=== PATIENT | male | born 1965 | race Caucasian/White ===

== ENCOUNTER → 2023-04-06 | Outpatient (CLI) | payer BC, SELFPAY ==
[2023-04-06 12:26] LABS: Absolute Lymphocyte Count 2.45 X10^3/uL (0.83-4.51); Absolute Neutrophil Count 2.8 X10^3/uL (2.0-7.7); Basophil# 0.04 X10^3/uL; Basophil% 0.7 % (0-1); Eosinophil# 0.09 X10^3/uL; Eosinophils% 1.5 % (0-5); Hematocrit 41.1 % (40-54); Hemoglobin 14.1 g/dL (13.0-16.5); Lymphocyte # 2.45 X10^3/ul (0.83-4.51); Lymphocyte % 41.8 % (19-41); Mean Corp Hgb Conc 34.3 g/dL (32-36); Mean Corpuscular Hgb 30.9 pg (27.0-32.0); Mean Corpuscular Volume 90.1 fL (80-94); Monocyte# 0.47 X10^3/uL; NRBC Flagged by Analyzer 0 % (0-5); Neutrophil # 2.78 X10^3/uL (2.7-7.7); Neutrophil % 47.5 % (47-70); Platelet Count 290 K/mm3 (150-450); RBC Distribution Width SD 39.6 fl (35.1-43.9); Red Blood Count 4.56 M/mm3 (4.6-6.2); White Blood Count 5.9 K/mm3 (4.4-11.0)
[2023-04-06 13:11] LABS: ALB/GLOB Ratio 1.1 RATIO (0.9-2.4); AST(SGOT) 27 U/L (15-37); Alanine Aminotransfer ALT/SGPT 45 U/L (16-61); Albumin, Serum 4.2 g/dL (3.2-5.0); Alkaline Phosphatase 45 U/L (45-117); Anion Gap 9 (5-15); BUN 13 mg/dL (7-18); BUN/Creat Ratio 15.5 RATIO (10-20); Calcium,Total 9.9 mg/dL (8.5-10.1); Chloride 105 mmol/L (98-107); Cholesterol 194 mg/dL (200); Creatinine, Serum 0.84 mg/dL (0.70-1.30); EST Glomerular Filtration Rate 100 mL/min (>60); Est Glom Filt Rate - Afr Amer 121 mL/min (>60); Globulin 3.8 g/dL (2.2-4.2); Glucose 94 mg/dL (74-106); High Density Lipoprotein 53 mg/dL; Potassium 4.3 mmol/L (3.5-5.1); Sodium Level 138 mmol/L (136-145); Triglycerides 213 mg/dL; Very Low Density Lipoprotein 43 mg/dL (5-40)
== END | disposition home or self-care (01) ==
LOC: MFPLAB 10:15
PROVIDERS: PCP Family Medicine; Visit Provider Family Medicine
DX: E78.5 Hyperlipidemia, unspecified (principal); I10 Essential (primary) hypertension
CPT/HCPCS: 36415; 80053; 80061; 85025

== ENCOUNTER 2024-07-25 07:41 | Day surgery (SDC) | payer BC, SELFPAY ==
--- NOTE | 2024-07-23 14:17 | PAT.ANE_ITS ---
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 When Was Last Pacemaker Check QUESTION #4 FULL TEXT: You/Your Family Experience fever (hyperthermia) with Anesthesia Last Oral Intake Last Oral intake: Last Oral Intake NPO since Meds taken in AM with sips of water? 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 Has anyone observed you stop No 07/23/24 12:08 breathing during sleep? STOP Results Negative 07/23/24 12:08 QUESTION #5 FULL TEXT : Do you snore loudly (louder than talking or can be heard through closed doors)? 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 Specify any problems Hx of Preganancy in last 3 N/A 07/23/24 12:08 Months Nurse Filling Out Transfusion VCHRISTIN 07/23/24 12:08 & Questions: Date: 07/23/24 07/23/24 12:08 Time: 12:10 07/23/24 12:08 Patient unable to answer at this time (ie. 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 Hx Now Gestational Age (in weeks): EDC: Hx Hx Para Hx Section SAB PFSH Medical History (Updated 07/23/24 @ 12:08 by Mar Garcia) Wears glasses Alcohol use Excessive bleeding Non-smoker History of stress test Hyperlipidemia Anxiety HTN (hypertension) Family history of colon cancer Personal history of colonic polyps Home Medications ?Medication ?Instructions ?Recorded ?Last Taken ?Type escitalopram oxalate 20 mg tablet 20 mg PO QDAY Unknown History lisinopril 20 mg tablet 20 mg PO QDAY 05/14/24 Unkno wn History multivitamin 1 tab PO QDAY 05/14/24 Unkno wn History simvastatin 20 mg tablet 20 mg PO QDAY 05/14/24 Unkno wn History Allergy/AdvReac Type Severity Reaction Status Date / Time Sulfa (Sulfonamide Allergy PT UNSURE Verified 07/23/24 11:59 Antibiotics) (sulfa drugs) OF REACTION Family History (Updated 05/14/24 @ 09:25 by Jory Madrigal) Grandmother Colon cancer Maternal, In her 70's Surgical History (Updated 07/23/24 @ 12:08 by Mar Garcia) History of laparoscopic cholecystectomy Hx of colonoscopy Social History (Updated 05/14/24 @ 09:26 by Jory Madrigal) household members: spouse current occupational status: employed Smoking Status: Never smoker alcohol intake: current alcohol intake frequency: holidays/special occasions only substance use type: does not use Audit: Pertinent Findings Pertinent Findings EKG Perinent findings: 02/2021: NSR, normal EKG Stress test pertinent findings: 07/2021: Negative treadmill stress test, no evidence of exercise induced ischemia Recommendation Anesthesia Recommendation Anesthesia recommendation: OPTIMIZED for anesthesia
[2024-07-25] VITALS (8 sets, daily range): BP systolic 110–125; BP diastolic 69–82; PULSE 58–66; RESP 12–16; TEMP 36.6–37.5; O2SAT 97–100; BMI 26.8
[2024-07-25] MEDS: Lactated Ringers 1,000 ML 15 ML IV (08:14)
--- NOTE | 2024-07-25 08:22 | H&P.OPEN ---
HPI - General HPI Narrative [place]AW, is a 59 M who presents for surveillance colonoscopy. The patient had a colonoscopy 5 years ago and polyps were removed and he was recommended for 5-year recall. He denies abdominal pain or blood in the stool. No constipation issues. No family history besides a grandmother with colon cancer [facility] Medical History (Updated 07/25/24 @ 08:[address] Jayme Escobar MD) Wears glasses Alcohol use Excessive bleeding Non-smoker History of stress test Hyperlipidemia Anxiety HTN (hypertension) Family history of colon cancer Personal history of colonic polyps Home Medications ?Medication ?Instructions ?Recorded ?Last Taken ?Type escitalopram oxalate 20 mg tablet 20 mg PO QDAY 05/14/24 07/24/24 History lisinopril 20 mg tablet 20 mg PO QDAY 05/14/24 07/24/24 History multivitamin 1 tab PO QDAY 05/14/24 07/24/24 History simvastatin 20 mg tablet 20 mg PO QDAY 05/14/24 07/24/24 History Allergy/AdvReac Type Severity Reaction Status Date / Time Sulfa (Sulfonamide Allergy PT UNSURE Verified 07/25/24 08:08 Antibiotics) (sulfa drugs) OF REACTION Family History (Updated 05/14/24 @ 09:25 by Jory Madrigal) Grandmother Colon cancer Maternal, In her 70's Surgical History (Updated 07/23/24 @ 12:08 by Mar Garcia) History of laparoscopic cholecystectomy Hx of colonoscopy Social History (Updated 05/14/24 @ 09:26 by Jory Madrigal) household members: spouse current occupational status: employed Smoking Status: Never smoker alcohol intake: current alcohol intake frequency: holidays/special occasions only substance use type: does not use Past Medical/Surgical History Planned Operation Planned Operative Procedure(s): COLONOSCOPY-OA Previous Hospitalizations/Surgeries HX Hospitalizations: No Any Problems With Anesthesia: Yes (HARD TO WAKE, N&V) You/Your Family Experience Fever (Hyperthermia) With Anes: No Cholinesterase deficiency: No Cardiovascular Hx Hypertension: No Respiratory Hx Sleep Apnea: No Hx Respiratory Tract Infection/Cold (presently): No Do You Snore Loudly (louder than talking or can be heard): No Do You Often Feel Tired/ Fatigued/ Sleepy Dring Daytime?: No Has Anyone Observed You Stop Breathing During Sleep?: No Result (for STOP score): Negative Smoking Status: Never smoker Neurological Does patient have nerve stimulator: No Miscellaneous Recent Exposure to Contagious Disease: No Allergies Sulfa (Sulfonamide Antibiotics) (sulfa drugs) Allergy (Verified 07/25/24 08:08) PT UNSURE OF REACTION As a child Discharge Is Pt Admitted From a [facility], or a Retirement: No After D/C, Where Do you Plan to Go: Return Home Vital Signs Vital Signs Vital Signs: 07/25/24 08:11 07/25/24 08:12 Temperature 97.9 F Temperature Source Temporal Pulse Rate 63 Respiratory Rate 12 Respiratory Pattern Normal Blood Pressure 125/82 H Blood Pressure Mean 96 Blood Pressure Source Monitor Blood Pressure Position Semi-Fowlers Blood Pressure Location Left Arm Pulse Ox 100 Oxygen Delivery Method Room Air Weight Weight: 186 lb 15.232 oz Body Mass Index (BMI) 26.8 Physical Exam Const alert and oriented x3 HEENT normocephalic Eyes PERRL Resp normal respiratory effort and normal air movement Cardio regular rate and regular rhythm GI soft to palpation, non-tender and non-distended Extremity normal to inspection Assessment & Plan Assessment/Plan (1) Personal history of colonic polyps: PLAN: I explained endoscopy in detail to the patient. I explained the risks including but not limited to stroke or heart attack with anesthesia, perforation of the GI tract, bleeding, infection. I explained that any of these could necessitate further emergency surgery. The patient understands and all questions were answered sufficiently. The patient wishes to proceed with procedure. Jayme Escobar MD Pager: [facility] [address] [place] [address], [address] [place] [address] Office: Surgery Risks - Colonoscopy Risks Include but are not Limited To: Risks include but are not limited to: Bleeding, perforation requiring further surgery, inability to complete colonoscopy requiring barium enema.
--- NOTE | 2024-07-25 08:28 | PRE.ANES_ITS ---
ASA Classification* ASA Classification ASA Classification: 2 Assessment & Plan Anesthesia* Anesthesia Assessment Anesthesia Assessment: Discussed sedation and/or anesthesia options, risks, benefits, and alternatives with patient/parents/legal guardian/POA. Questions invited. The patient/parents/legal guardian/POA seems to understand and agrees to proceed with anesthesia plan. Reviewed the physical assessment, medical history, allergy history and patient home medications list prior to surgery/procedure/anesthetic and documented any changes. Performed airway and anesthesia risk assessments. Anesthesia Type Anesthesia Type: MAC History Source History Obtained from:: Patient and Chart Anesthesia Focused Assessment* Temperature: 97.9 F Pulse Rate: 63 Blood Pressure: 125/82 Respiratory Rate: 12 Pulse Ox: 100 Oxygen Delivery Method: Room Air Airway Assessment Mouth opens: >3 cm Mallampati Score: II Teeth Condition: Intact Neck Range of motion (ROM): Full ROM Focused Labs Anesthesia Preop lab: CBC WBC 5.9 K/mm3 (4.4-11.0) 04/06/23 10:04/06/23 RBC 4.56 M/mm3 (4.6-6.2) L 04/06/23 10:04/06/23 Hgb 14.1 g/dL (13.0-16.5) 04/06/23 10:04/06/23 Hct 41.1 % (40-54) 04/06/23 10:04/06/23 Plt Count 290 K/mm3 (150-450) 04/06/23 10:04/06/23 CHEMISTRY Potassium 4.3 mmol/L (3.5-5.1) 04/06/23 10:04/06/23 Sodium 138 mmol/L (136-145) 04/06/23 10:04/06/23 BUN 13 mg/dL (7-18) 04/06/23 10:04/06/23 Creatinine 0.84 mg/dL (0.70-1.30) 04/06/23 10:04/06/23 Glucose 94 mg/dL (74-106) 04/06/23 10:04/06/23 COAG Pre-Assessment Diagnosis/Proposed Procedure Planned Operative Procedure(s): COLONOSCOPY-OA Anesthesia History 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 When Was Last Pacemaker Check QUESTION #4 FULL TEXT: You/Your Family Experience fever (hyperthermia) with Anesthesia Any additional information?: No Last Oral Intake Last Oral intake: Last Oral Intake NPO since 22:00 07/25/24 08:12 Meds taken in AM with sips of No 07/25/24 08:12 water? Meds patient instructed to take am of surgery Any additional information?: No PONV PONV - account executive key accounts: PONV - account executive key accounts Female No 07/23/24 12:08 HX of Motion Sickness No 07/23/24 12:08 HX of N/V After Surgery Yes 07/23/24 12:08 Non-Smoker Yes 07/23/24 12:08 Duration of Surgery greater No 07/23/24 12:08 than 60 minutes Number of Risk Factors 2 07/23/24 12:08 PONV Score Moderate Risk 07/23/24 12:08 Any additional information?: No Height & Weight Height & Weight: Anesthesia: Height & Weight Height 5 ft 10 in 07/25/24 08:12 Weight: 84.8 kg 07/25/24 08:12 Body Mass Index (BMI) 26.8 07/25/24 08:12 Respiratory Assessment Respiratory Assessment - account executive key accounts: Respiratory Tract Infection Hx - account executive key accounts Hx Respiratory Tract Infection No 07/25/24 08:24 Any additional information?: No STOP Sleep Apnea STOP Sleep Apnea - account executive key accounts: STOP Sleep Apnea - account executive key accounts Hx Hypertension No 07/25/24 08:24 Hx Sleep Apnea No 07/25/24 08:24 CPAP BIPAP Do you snore loudly (louder No 07/25/24 08:24 than talking or can be heard Do you often feel tired/ No 07/25/24 08:24 fatigued/ sleepy during daytime? Has anyone observed you stop No 07/25/24 08:24 breathing during sleep? STOP Results Negative 07/25/24 08:24 QUESTION #5 FULL TEXT : Do you snore loudly (louder than talking or can be heard through closed doors)? 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 Specify any problems Hx of Preganancy in last 3 N/A 07/23/24 12:08 Months Nurse Filling Out Transfusion VCHRISTIN 07/23/24 12:08 & Questions: Date: 07/23/24 07/23/24 12:08 Time: 12:10 07/23/24 12:08 Patient unable to answer at this time (ie. confused, unrespo Any additional information?: No /Reproduction History /Reproductive History - account executive key accounts: /Reproductive Hx- account executive key accounts Hx Now Gestational Age (in weeks): EDC: Hx Hx Para Hx Section SAB Any additional information?: No Active Medications Active Medications: Current Medications Generic Name Dose Route Start Last Admin Trade Name Freq PRN Reason Stop Dose Admin Lactated Ringer's 1,000 mls @ 15 mls/hr 07/25/24 08:00 07/25/24 08:14 IV 15 mls/hr .Q48H TRUE Administration PFSH Medical History (Updated 07/25/24 @ 08:[address] Jayme Escobar MD) Wears glasses Alcohol use Excessive bleeding Non-smoker History of stress test Hyperlipidemia Anxiety HTN (hypertension) Family history of colon cancer Personal history of colonic polyps Home Medications ?Medication ?Instructions ?Recorded ?Last Taken ?Type escitalopram oxalate 20 mg tablet 20 mg PO QDAY 07/24/24 History lisinopril 20 mg tablet 20 mg PO QDAY 05/14/2407/24 History multivitamin 1 tab PO QDAY 05/14/2407/24 History simvastatin 20 mg tablet 20 mg PO QDAY 05/14/2407/24 History Allergy/AdvReac Type Severity Reaction Status Date / Time Sulfa (Sulfonamide Allergy PT UNSURE Verified 07/25/24 08:08 Antibiotics) (sulfa drugs) OF REACTION Family History (Updated 05/14/24 @ 09:25 by Jory Madrigal) Grandmother Colon cancer Maternal, In her 70's Surgical History (Updated 07/23/24 @ 12:08 by Mar Garcia) History of laparoscopic cholecystectomy Hx of colonoscopy Social History (Updated 05/14/24 @ 09:26 by Jory Madrigal) household members: spouse current occupational status: employed Smoking Status: Never smoker alcohol intake: current alcohol intake frequency: holidays/special occasions only substance use type: does not use Review of Systems (Anesthesia) ROS Narrative System reviewed and no additional complaints, except as documented. Review of Systems ROS Unobtainable: Denies due to encephalopathy, due to endotracheal tube, due to mental condition, due to mental status or other Physical Exam Const alert, oriented x3 and average body habitus Orientation / Consciousness: awake HEENT dentition normal Neck full ROM Resp normal respiratory effort and normal air movement Charges/Coding Procedures Digestive 40xxx-49xxx: [id number] Colonoscopy and biopsy
--- NOTE | 2024-07-25 09:25 | OP.CCLET_ITS ---
07/25/2024 Chandan Phipps Md Re : Colonoscopy procedure for Vasu Rangel Dear Moise This procedure was performed on Thursday, July 25, 2024. My impressions and recommendations are as follows: Impressions : - The entire examined colon is normal on direct and retroflexion views. - No specimens collected. Recommendations : - Discharge patient to home. - Resume previous diet. - Continue present medications. - Repeat colonoscopy in 10 years for screening purposes. My findings are described in the full procedure note, which is enclosed. If I can be of further assistance, please feel free to contact me at Doctor phone number(s): , Work: . Sincerely, Jayme Escobar MD 07/25/2024 9:25:18 AM This report has been signed electronically.
--- NOTE | 2024-07-25 09:25 | OP.COLON_ITS ---
Patient Name: Vasu Rangel Procedure Date: 07/25/2024 8:24 AM Date of : 1965 Age: 59 Procedure: Colonoscopy Indications: High risk colon cancer surveillance: Personal history of colonic polyps Providers: Jayme Escobar MD Referring MD: Chandan Phipps Md Medicines: Propofol per Anesthesia Patient Profile: This is a 59 year old male. Refer to note in patient chart for documentation of history and physical. Last Colonoscopy: 5 years ago. Complications: No immediate complications. Procedure: Pre-Anesthesia Assessment: - Prior to the procedure, a History and Physical was performed, and patient medications and allergies were reviewed. The patient's tolerance of previous anesthesia was also reviewed. The risks and benefits of the procedure and the sedation options and risks were discussed with the patient. All questions were answered, and informed consent was obtained. Prior Anticoagulants: The patient has taken no anticoagulant or antiplatelet agents. After reviewing the risks and benefits, the patient was deemed in satisfactory condition to undergo the procedure. After I obtained informed consent, the scope was passed under direct vision. Throughout the procedure, the patient's blood pressure, pulse, and oxygen saturations were monitored continuously. The Colonoscope was introduced through the anus and advanced to the cecum, identified by appendiceal orifice and ileocecal valve. The colonoscopy was performed without difficulty. The patient tolerated the procedure well. The quality of the bowel preparation was good. The ileocecal valve, appendiceal orifice, and rectum were photographed. Scope In: 9:08:53 AM Scope Withdrawal Time 0 hours 6 minutes 44 seconds Scope Out: 9:23:06 AM Total Procedure Duration Time 0 hours 14 minutes 13 seconds Findings: The entire examined colon appeared normal on direct and retroflexion views. Impression: - The entire examined colon is normal on direct and retroflexion views. - No specimens collected. Recommendation: - Discharge patient to home. - Resume previous diet. - Continue present medications. - Repeat colonoscopy in 10 years for screening purposes. Procedure Code(s): --- Professional --- 56815, Colonoscopy, flexible; diagnostic, including collection of specimen(s) by brushing or washing, when performed (separate procedure) Diagnosis Code(s): --- Professional --- Z86.010, Personal history of colonic polyps CPT copyright 2021 [employer]. All rights reserved. The codes documented in this report are preliminary and upon grain oilseed or pasture farm worker review may be revised to meet current compliance requirements. Jayme Escobar MD 07/25/2024 9:25:18 AM This report has been signed electronically. Number of Addenda: 0 Note Initiated On: 07/25/2024 8:24 AM
--- NOTE | 2024-07-25 09:28 | PCM.POST.ANE ---
Anesthesia: Postop Eval I Current Vital Signs Temperature: 97.9 F Pulse Rate: 66 Blood Pressure: 110/76 Respiratory Rate: 16 Pulse Ox: 97 Oxygen Delivery Method: Room Air Assessment Airway patent: Yes Spontaneous unlabored respirations: Yes Mental status: Awake and Calm nausea: No Vomiting: No Anesthesia Complication: No Fluid Hydration Crystalloid volume administer (ml): 500 Total IV fluid infused: 500 Progress Note Anesthesia document: Postop Eval 1 completed: Yes
--- NOTE | 2024-07-25 09:53 | POSTOPAN2_ITS ---
Anesthesia Postop Eval I Sum Postop Eval Completion status Anesthesia document: Postop Eval 1 completed: Yes Anesthesia Postop Eval I Summary Anesthesia Postop Eval I Summary: Anesthesia Postop Eval I: Assessment Summary Airway patent Yes 07/25/24 09:29 VISION IMPAIRED [email or web address] Spontaneous unlabored Yes 07/25/24 09:29 VISION IMPAIRED TEACHER.SOBR respirations Mental status Awake,Calm 07/25/24 09:29 VISION IMPAIRED TEACHER.SOBR nausea No 07/25/24 09:29 VISION IMPAIRED TEACHER.SOBR Vomiting No 07/25/24 09:29 VISION IMPAIRED TEACHER.SOBR Anesthesia Postop Eval I: Fluid Summary Crystalloid volume administer 500 07/25/24 09:29 VISION IMPAIRED [email or web address] (ml) Colloids volume administered ( ml) Blood Product volume administered (ml) Total IV fluid infused 500 07/25/24 09:29 VISION IMPAIRED [email or web address].SOBR Anesthesia Postop Eval I: Summary Notes Anesthesia Complication No 07/25/24 09:29 VISION IMPAIRED [email or web address].SOBR Anesthesia Complication Comment: Post-operative progress note Anesthesia: Postop Eval II Evaluation Mental status: Awake and Calm Pain Level: 2 nausea: No Vomiting: No Complications Anesthesia Complication: No
--- NOTE | 2024-07-25 09:53 | PCM.POSTANE2 ---
Anesthesia Postop Eval I Sum Postop Eval Completion status Anesthesia document: Postop Eval 1 completed: Yes Anesthesia Postop Eval I Summary Anesthesia Postop Eval I Summary: Anesthesia Postop Eval I: Assessment Summary Airway patent Yes 07/25/24 09:29 [email or web address] Spontaneous unlabored Yes 07/25/24 09:29 [email or web address] respirations Mental status Awake,Calm 07/25/24 09:29 [email or web address] nausea No 07/25/24 09:29 [email or web address] Vomiting No 07/25/24 09:29 [email or web address] Anesthesia Postop Eval I: Fluid Summary Crystalloid volume administer 500 07/25/24 09:29 [email or web address] (ml) Colloids volume administered ( ml) Blood Product volume administered (ml) Total IV fluid infused 500 07/25/24 09:29 [email or web address] Anesthesia Postop Eval I: Summary Notes Anesthesia Complication No 07/25/24 09:29 [email or web address] Anesthesia Complication Comment: Post-operative progress note Anesthesia: Postop Eval II Evaluation Mental status: Awake and Calm Pain Level: 2 nausea: No Vomiting: No Complications Anesthesia Complication: No
== END 2024-07-25 10:06 | disposition home or self-care (01) ==
LOC: EN 07:44 → AC 07:45
PROVIDERS: PCP Family Medicine; Referring Provider Family Medicine; Visit Provider Surgery
PROC: 0DJD8ZZ Inspection of Lower Intestinal Tract, Via Natural or Artificial Opening Endoscopic (ICD-10-PCS; CPT 45378; principal; 2024-07-25 08:40)
DX: Z12.11 Encounter for screening for malignant neoplasm of colon (principal); I10 Essential (primary) hypertension; E78.5 Hyperlipidemia, unspecified; Z79.899 Other long term (current) drug therapy; Z86.0100 Personal history of colon polyps, unspecified
CPT/HCPCS: 45378